=== PATIENT | female | born 1945 | race Caucasian/White ===

== ENCOUNTER 2018-09-22 11:11 | Inpatient (IN) | payer OTHER ==
[~2018-09-22] VITALS: Ht 162.6 cm; Wt 57.2 kg
[~2018-09-22 11:11] MED LIST: PREMPRO 0.3 MG/1 TAB PO; PROTONIX40 MG PO
[2018-10-07] MEDS ORDERED: RAMIPRIL5 MG PO (13:37)
[2018-10-16] MEDS ORDERED: ULTRACET PO (08:24)
[2018-10-16] MEDS ORDERED: DOCUSATE CALCI240 MG PO (08:25)
== END 2018-10-16 09:30 | disposition home or self-care (01) | DRG 349 ==
LOC: ADM 10-07 12:00 → EDSTATUS 10-07 12:00 → O/R 10-15 05:55 → SURH 10-15 10:38
PROVIDERS: ADMIT Surgery
PROC: 3E0T3BZ Introduction of Anesthetic Agent into Peripheral Nerves and Plexi, Percutaneous Approach (ICD-10-PCS; 2018-10-15)
PROC: 0DBP7ZZ Excision of Rectum, Via Natural or Artificial Opening (ICD-10-PCS; principal; 2018-10-15 14:30)
DX: D12.8 Benign neoplasm of rectum (principal)